=== PATIENT | male | born 1975 | race Caucasian/White ===

== ENCOUNTER 2018-07-29 08:15 | Emergency (ER) | payer SELFPAY ==
[~2018-07-29] VITALS: Ht 172.7 cm; Wt 59.1 kg
[~2018-07-29 08:15] MED LIST: BACTRIM DS1 TAB PO; NAPROSYN500 MG PO
[2018-07-29] MEDS ORDERED: PERMETHRIN5 % EX (09:13)
[2018-07-29] MEDS ORDERED: DOXYCYC MONO100 M1 PO (09:20)
[2018-07-29 09:35] VITALS: BP 159/111
== END 2018-07-29 09:35 | disposition home or self-care (01) | DRG 607 ==
LOC: ED 08:15
DX: B86 Scabies (principal)

== ENCOUNTER 2018-07-31 12:19 | Emergency (ER) | payer SELFPAY ==
[~2018-07-31] VITALS: Ht 172.7 cm; Wt 59.0 kg
[~2018-07-31 12:19] MED LIST changes: +DOXYCYC MONO100 M1 PO; +PERMETHRIN5 % EX
[2018-07-31] MEDS ORDERED: PREDNISONE50 MG PO (12:54)
[2018-07-31] MEDS ORDERED: SB ALLERGY10 MG PO (12:54)
[2018-07-31 13:25] VITALS: BP 142/89
== END 2018-07-31 13:25 | disposition home or self-care (01) | DRG 916 ==
LOC: ED 12:19
DX: T78.40XA Allergy, unspecified, initial encounter (principal)

== ENCOUNTER 2018-10-23 20:40 | Emergency (ER) | payer OTHER ==
[~2018-10-23] VITALS: Ht 172.7 cm; Wt 96.0 kg
[~2018-10-23 20:40] MED LIST changes: +PREDNISONE50 MG PO; +SB ALLERGY10 MG PO
[2018-10-23] MEDS ORDERED: MELOXICAM7.5 MG PO (21:28)
[2018-10-23 22:33] VITALS: BP 138/92
== END 2018-10-23 22:33 | disposition home or self-care (01) | DRG 552 ==
LOC: ED 20:40
DX: M54.6 Pain in thoracic spine (principal)

== ENCOUNTER 2020-06-21 11:14 | Emergency (ER) | payer OTHER ==
[~2020-06-21] VITALS: Ht 172.7 cm; Wt 55.0 kg
[~2020-06-21 11:14] MED LIST changes: +MELOXICAM7.5 MG PO
[2020-06-21] MEDS ORDERED: DUPIXENT300 MG/2 M (12:11)
[2020-06-21 12:18] LABS: HEMATOCRIT 53.9 % (39.0-50.0); HEMOGLOBIN 17.8 g/dl (14.0-18.0); IMMATURE GRANULOCYTES 0.3 % (0.0-5.0); MEAN CELL VOLUME 90.7 fL CALC (80.0-100.0); NEUT# 5.52 thou/uL (1.82-7.42); RED BLOOD COUNT 5.94 mill/uL (4.70-6.10); RED CELL DISTRI WIDTH 13.4 % (11.5-15.5)
[2020-06-21 12:26] LABS: ANION GAP 13 (6-22 (CALC)); BUN 9 mg/dL (9-20); BUN/CREATININE RATIO 8 (12-20 (CALC)); CARBON DIOXIDE 26 mmol/l (22-30); CHLORIDE 103 mmol/l (95-108); CREATININE 1.1 mg/dL (0.7-1.3); GFR > 60 ML/MIN (>=60 (CALC)); GFR FOR AFR.AMER. > 60 ML/MIN (>=60 (CALC)); POTASSIUM 3.7 mmol/l (3.5-5.1); SODIUM 139 mmol/l (137-146)
[2020-06-21] MEDS ORDERED: MOTRIN400 MG PO (12:55)
[2020-06-21 13:06] VITALS: BP 137/90
== END 2020-06-21 13:07 | disposition home or self-care (01) ==
LOC: ED 11:14
PROVIDERS: Family Medicine
DX: R07.89 Other chest pain (principal); I10 Essential (primary) hypertension